=== PATIENT | female | born 1995 ===

== ENCOUNTER 2018-12-24 10:13 | Inpatient (IN) | payer OTHER ==
[~2018-12-24] VITALS: Ht 152.4 cm; Wt 5.0 kg
[2018-12-24] MEDS ORDERED: CIPRO100 MG (10:41)
--- NOTE | 2018-12-24 10:42 | NUR ---
PTE ES EMPELADA DE CRUCERO ROYAL CARRIBEAN. PTE INDICA DOLOR ABDOMINAL. PTE ALERTA ORIENTADA Y CONSCIENTE. X3
--- NOTE | 2018-12-24 12:22 | NUR ---
EVALUADA POR EL SE ORIENTA SOBRE TRATAMIENTO MEDICO POR MRS.SCHILLING LE EXTRAE MUESTRAS DE MARIANNA Y SE ENVIAN AL LABORATORIO. SE MANTIENE EN OBSERVACION.
--- NOTE | 2018-12-24 15:00 | NUR ---
SE RECIBE PTE ALERTA Y ORIENTADA X3 LA CUAL SE OBSERVA EN LEXI CON BARANDAS ELEVADAS AL MOMENTO. PTE SE OBSERVA CON 0.9NSS BAJANDO A 133ML/HR. PTE EN ESPERA DE RE EVALUACION MEDICA. PTE SE CONTINUA MONITORIANDO POR CAMBIOS.
--- NOTE | 2018-12-24 22:54 | NUR ---
SE CAMIBA IV BAG A PTE Y SE ORIENTA A PTE SOBRE CONSULTA CON GYNECOLOGO. PTE SE CONTINUA MONITORIANDO POR CAMBIOS.
--- NOTE | 2018-12-24 23:16 | NUR ---
PT ALERTA Y ORIENTADA X3 ESFERAS, DAYANNA. SE RECIBE EN LEXI CON BARANDAS ELEVADAS Y FRENOS COLOCADOS. HEPARIN LOCK E IVLFUIDS PATENTES. PT [place] TX. PENDIENTE VISITA DE INTERNISTA: DR.OLIVERAS HOOD. PT [place] TX, SE MANTIENE BAJO OBSERVACION POR CAMBIOS EN LAURA.
--- NOTE | 2018-12-25 07:13 | NUR ---
SE RECIBE PTE ALERTA Y ORIENTADA POR 3 LA CUAL SE ENCUENTRA EN CAMA CON BRARANDAS ELEVADAS & ID BAND. PTE PRESENTA AREA DE VENOPUNCION PATENTE Y TRUDY DE EDEMA. LA MISMA SE ENCUENTRA EN ESPERA DE CONSULTA CON DR. KEITA.
[2018-12-27] MEDS ORDERED: CODE1TAB37 PO (11:40)
[2018-12-27] MEDS ORDERED: NAPR500T14 PO (11:40)
== END 2018-12-27 13:17 | disposition home or self-care (01) | DRG 743 ==
LOC: ER 10:13 → SEC-K 12-25 09:43 → O/R 12-25 15:34 → OB/GYN 12-25 17:23
PROVIDERS: ADMIT Obstetrics & Gynecology
PROC: 0UT10ZZ Resection of Left Ovary, Open Approach (ICD-10-PCS; 2018-12-25)
PROC: 0DNU0ZZ Release Omentum, Open Approach (ICD-10-PCS; 2018-12-25)
PROC: 0UT60ZZ Resection of Left Fallopian Tube, Open Approach (ICD-10-PCS; principal; 2018-12-25 14:00)
DX: D27.1 Benign neoplasm of left ovary (principal); N73.6 Female pelvic peritoneal adhesions (postinfective)